=== PATIENT | female | born 1950 | race Caucasian/White ===

== ENCOUNTER 2019-12-25 19:21 | Observation (INO) | payer OTHER ==
[~2019-12-25] VITALS: Ht 157.5 cm; Wt 80.7 kg
--- NOTE | ~2019-12-25 | CON ---
[address] [address] CONSULTATION Name: LIZZETH PADILLA Room: [address] Adeola#: [id number] Admission: 12/25/19 Attend Phys: Esequiel Figueroa Discharge: Date of : 46 Report #: [id number] THIS REPORT FOR: //name// cc: Zeferino Valdes MD, Michilia D. MD ~ THIS REPORT FOR: //name// CC: Zeferino Kelley DATE OF SERVICE: 12/26/2019 HISTORY OF PRESENT ILLNESS: This is a 69-year-old female patient who was evaluated by me because the son noticed some speech difficulty about couple of days ago. He said it has become better. It came spontaneously without any trauma. He does not know anything which made it better or worse. REVIEW OF SYSTEMS: Indicates she is pretty healthy. She had some stroke about 4 years ago. At that time, she was in [facility]. I do not have any records. It is not clear how that stroke affected her. She is feeling better now. Review of systems otherwise is unremarkable. She is not complaining of any eye, ENT, cardiac, respiratory, GI, , musculoskeletal, constitutional, dermatological, hematological, psychiatric, throat, allergic symptom associated with present symptomatology. PAST MEDICAL HISTORY: Positive for stroke. She was in [facility]. I do not have any records. FAMILY HISTORY: Negative for any early age stroke. SOCIAL HISTORY: She does not drink any alcohol or smoke. PHYSICAL EXAMINATION: Indicates she is alert. She is responsive. She can follow simple and complex command. She is fully oriented. Her speech, concentration, fund of knowledge and memory is back to her baseline. Cranial nerve examination showed a question of nystagmus. Strength, sensation, reflexes and tone is symmetrical and normal. She does have difficulty sitting up and even standing up, but the son says it is his baseline. She does have difficulty walking also. There is no meningeal sign in this patient. Cardiac examination is unremarkable. No respiratory difficulty was noticed. She is a well-developed individual. Her hearing and vision looks adequate. Blood pressure is 149/80, respiration is 20, pulse is 83, temperature is 97.5. LABORATORY DATA: Her white count is 8.9. Sodium is normal at 140. GFR is normal. She did have a CT angio of the head and neck when she came to the hospital. [place] [address] CONSULTATION Name: LIZZETH PADILLA Room: [address]#: [id number] Admission: 12/25/19 Attend Phys: Esequiel Figueroa Discharge: Date of : 46 Report #: [id number] IMPRESSION: I agree with the plan of excluding the posterior fossa stroke further. Otherwise, ENT pathology need to be considered. We will plan the further workup after the MRI is done. This was discussed with the patient and the family in detail and they are agreeable with this plan. By: 1514 1652Pike Albert MD /nt
[2019-12-25 02:00] VITALS: BP 155/86
[2019-12-25 19:41] VITALS: BP 132/111
[2019-12-25] MEDS ORDERED: GLIPIZIDE 10 MG10 MG PO (19:48)
[2019-12-25] MEDS ORDERED: SIMVASTATIN80 MG PO (19:48)
[2019-12-25] MEDS ORDERED: SYNJARDY 12.5-1 EACH PO (19:48)
[2019-12-25] MEDS ORDERED: VITAMIN D210 MCG PO (19:49)
[2019-12-25] MEDS ORDERED: ASA81BEC PO (19:49)
[2019-12-25 20:09] LABS: ABSOLUTE BASOPHILS 0.1 thou/uL (0.0-0.2); ABSOLUTE EOSINOPHILS 0.1 thou/uL (0.0-0.7); ABSOLUTE LYMPHOCYTES 1.5 thou/uL (0.8-5.3); ABSOLUTE MONOCYTES 0.7 thou/uL (0.0-1.2); ABSOLUTE NEUTROPHILS 6.6 thou/uL (1.6-8.1); BASOPHILS 0.8 %; EOSINOPHILS 1.2 %; HEMOGLOBIN 14.1 gm/dL (12.0-15.0); LYMPHOCYTES 16.5 %; MCH 26.1 pg (26.0-34.0); MCHC 32.7 g/dL (28.0-37.0); MCV 79.9 fL (80.0-100.0); MPV 7.7 fl. (7.2-11.1); NUCLEATED RBCS 0 /100WBC; PLATELET COUNT* 289 thou/uL (150-400); POLYS 73.5 %; RBC 5.39 mil/uL (4.20-5.00); RDW-CV 14.6 % (10.5-14.5); WBC 8.9 thou/uL (4.0-11.0)
[2019-12-25 20:18] LABS: CREATININE 0.9 mg/dL (0.6-1.3); POTASSIUM 3.8 mmol/L (3.5-5.1)
[2019-12-25 20:20] LABS: PROTIME 10.1 Seconds (9.20-11.50)
[2019-12-25 20:32] LABS: ALBUMIN 3.7 g/dL (3.4-5.0); MAGNESIUM 1.9 mg/dL (1.8-2.4); TOTAL BILIRUBIN 0.2 mg/dL (<0.1-1.0)
[2019-12-25 23:34] LABS: URINE BILIRUBIN NEGATIVE (Negative); URINE BLOOD NEGATIVE (Negative); URINE CLARITY CLEAR; URINE COLOR STRAW; URINE GLUCOSE-RANDOM 3+ (Negative); URINE KETONES 1+ (Negative); URINE LEUKOCYTES-REFLEX NEGATIVE (Negative); URINE NITRITE-REFLEX NEGATIVE (Negative); URINE PROTEIN NEGATIVE (Negative); URINE SPECIFIC GRAVITY <= 1.005 (1.005-1.030); URINE UROBILINOGEN 0.2 E.U./dl (0.2-1.0)
[2019-12-26] VITALS (7 sets, daily range): BP systolic 139–155; BP diastolic 65–87
[2019-12-26] MEDS ORDERED: EXCEDRIN CAPLE1 EACH PO (01:54)
--- NOTE | 2019-12-26 07:34 | NUR ---
RECEIVED REPORT FROM ED RN. PT TRANSFERRED TO 201. PT A&OX4. VSS. ADMISSION HISTORY & PHYSICAL ASSESSMENT COMPLETED AND CHARTED. PT ON RA. PT TRACING SR ON TELE. ORIENTED TO ROOM & CALL LIGHT. PT UPSTANDBY TO RESTROOM. NIH CHARTED. CALL LIGHT WITHIN REACH.
[2019-12-26 09:52] LABS: CHOLESTEROL 129 mg/dL (<200); HDL CHOLESTEROL 49 mg/dL (>40); LDL CHOLESTEROL 62 mg/dL (<100); TC:HDL 2.6 Ratio (Not establshd); TRIGLYCERIDE 93 mg/dL (<150); VLDL 19 mg/dL (<40)
[2019-12-26 09:53] LABS: SERUM ASSESSMENT Clear
--- NOTE | 2019-12-26 10:27 | EKG ---
[place] [address] ELECTROCARDIOGRAM REPORT Name: LIZZETH PADILLA [address]#: [id number] Admission: 12/25/19 Attend Phys: Mansoor Kelley Discharge: Date of : 46 Date of Service: 12/25/191954 Report #: [id number] THIS REPORT FOR: //name// [facility] ED Test Date: 2019-12-25 Test Time: 19:55:18 Pat Name: LIZZETH PADILLA Department: Room: [facility] Gender: F Children[facility] Nurs[facility] Assistant: URVASHI : 1950 Requested By: Lynsey Davidson Order Number: [id number] MD: Alexandru Jones Measurements Intervals [place] Rate: 97 P: -3 UT: 149 QRS: -15 QRSD: 87 T: 4 QT: 368 QTc: 468 Interpretive Statements Sinus rhythm Borderline left axis deviation Low voltage, precordial leads No previous ECG available for comparison Electronically Signed On 12-26-2019 10:26:53 CDT by Alexandru Jones [email or web address] <ELECTRONICALLY SIGNED> By: Alexandru Jones MD, FAC 12/26/19 1026 54 54 Alexandru Jones MD, [facility] /EPI
--- NOTE | 2019-12-26 12:45 | NUR ---
Pt is A&O. Resides at home with her and son. Independent. Pt uses a walker or cane for mobility. No home o2. Hx of HH post CVA, does not remember the name of the agency. No hx of SNF. Pt's goal is to return home at dc, is open to HH at dc if needed. Neuro eval pending, planned MRI. Following.
--- NOTE | 2019-12-26 19:29 | NUR ---
PT A&OX4 VSS. FALL PRECAUTIONS IN PLACE. SINUS ON MONITOR. SBA W/WALKER FOR STABILITY. IV TO RFA PATENT, DRESSING C/D/I. PT REMAINS ON ROOM AIR. PT ACCUCHECK, SLIDING SCALE INSULIN ADMINISTERED INDICATED ON JUL. PT HAD MRI THIS AFTERNOON. FAMILY IN TO VISIT TODAY WELL. PT RESTS IN ROOM WITH CALL LIGHT IN REACH. WILL CONTINUE TO MONITOR.
[2019-12-27] VITALS: BP 138/73
[2019-12-27 02:06] LABS: GLYCOHEMOGLOBIN (HGB A1C) 8.6 % (4.8-5.6)
[2019-12-27 04:00] VITALS: BP 129/68
--- NOTE | 2019-12-27 04:46 | NUR ---
ASSUMED CARE OF PT AFTER RPORT AT 1930. PT A&OX4. VSS. PHYSICAL ASSESSMENT COMPLETED AND CHARTED. PT ON RA. PT TRACING SR ON TELE. PT UPSTANDBY TO RESTROOM. NIH CHARTED. PT COMPLAINED OF HEADACHE-MED GIVEN PER JUL. FALL PRECAUTIONS IN PLACE. CALL LIGHT WITHIN REACH.
[2019-12-27 08:00] VITALS: BP 110/81
[2019-12-27] MEDS ORDERED: VITAMIN B-12500 MCG PO (08:19)
[2019-12-27] MEDS ORDERED: PLAVIX 75 MG TA75 MG PO (08:41)
[2019-12-27 10:59] VITALS: BP 110/81
[2019-12-27 11:15] VITALS: BP 110/81
--- NOTE | 2019-12-27 12:46 | 2DMMODE ---
[place] [address] 2 D/M-MODE ECHOCARDIOGRAM Name: LIZZETH PADILLA Room: [address] Adeola#: [id number] Admission: 12/25/19 Attend Phys: Mansoor Kelley Discharge: Date of : 46 Date of Service: 12/27/19 1246 Report #: [id number] THIS REPORT FOR: cc: Zeferino Valdes MD, Michilia D. MD Blick, David R. MD [facility] ~ APPROVED REPORT Study performed: 12/27/2019 11:02:14 EXAM: Comprehensive 2D, Doppler, and color-flow Echocardiogram Patient Location: In-Patient Room #: [facility] Status: routine BSA: 1.82 HR: 60 bpm BP: 129/68 mmHg Rhythm: NSR Other Information Study Quality: Good Indications CVA/TIA Echo Enhancing Agent Indication: Rule out Shunt Agent(s) / Amount(s) Used: Agitated Saline 10 cc 2D Dimensions IVSd: 11.75 (7-11mm) LVOT Diam: 19.16 (18-24mm) LVDd: 38.41 mm PWd: 10.21 (7-11mm) Ascending Ao: 30.11 (22-36mm) LVDs: 26.59 (25-40mm) Aortic Root: 30.70 mm Volumes Left Atrial Volume (Systole) LA ESV Index: 13.50 mL/m2 Aortic Valve AoV Peak Sudhakar.: 1.15 m/s AO Peak Gr.: 5.32 mmHg LVOT Max P.66 mmHg AO Mean Gr.: 2.57 mmHg LVOT Mean P.23 [place] [address] 2 D/M-MODE ECHOCARDIOGRAM Name: LIZZETH PADILLA Room: [address] MDixieR.#: [id number] Admission: 12/25/19 Attend Phys: Mansoor Kelley Discharge: Date of : 46 Date of Service: 12/27/19 1246 Report #: [id number] LVOT Max V: 0.82 m/s AO V2 VTI: 22.55 cm LVOT Mean V: 0.51 m/s MELLISSA (VTI): 2.53 cm2 LVOT V1 VTI: 19.82 cm Mitral Valve E/A Ratio: 0.56 MV Decel. Time: 234.13 ms MV E Max Sudhakar.: 0.47 m/s MV PHT: 67.90 ms MVA (PHT): 3.24 cm2 TDI E/Lateral E': 5.88 E/Medial E': 6.71 Medial E' Sudhakar.: 0.07 m/s Lateral E' Sudhakar.: 0.08 m/s Pulmonary Valve PV Peak Sudhakar.: 0.76 m/s PV Peak Gr.: 2.33 mmHg Left Ventricle The left ventricle is normal size. There is normal LV segmental wall motion. There is normal left ventricular wall thickness. Left ventricular systolic function is normal. The left ventricular ejection fraction is within the normal range. LVEF is 60-65%. Grade I - abnormal relaxation pattern. Right Ventricle The right ventricle is normal size. The right ventricular systolic function is normal. Atria The left atrium size is normal. The interatrial septum is intact with no evidence for an atrial septal defect. The right atrium size is normal. Aortic Valve The aortic valve is normal in structure. No aortic regurgitation is present. There is no aortic valvular stenosis. Mitral Valve The mitral valve is normal in structure. There is no mitral valve regurgitation noted. No evidence of mitral valve stenosis. Tricuspid Valve The tricuspid valve is normal in structure. Unable to assess PA pressure. Trace [place]icus[place] [address] 2 D/M-MODE ECHOCARDIOGRAM Name: LIZZETH PADILLA Room: [address] M.R.#: [id number] Admission: 12/25/19 Attend Phys: Mansoor Kelley Discharge: Date of : 46 Date of Service: 12/27/19 1246 Report #: [id number] Pulmonic Valve Pulmonic valve is not well visualized. There is no pulmonic valvular regurgitation. Great Vessels The aortic root is normal in size. IVC is normal in size and collapses >50% with inspiration. Pericardium There is no pericardial effusion. <Conclusion> LVEF is 60-65%. The interatrial septum is intact with no evidence for an atrial septal defect. <ELECTRONICALLY SIGNED> By: Alexandru Jones MD, [facility] 12/27/19 1246 1246 1246 Alexandru Jones MD, FACC /INF
--- NOTE | 2019-12-27 14:34 | NUR ---
ASSUMED PT CARE REPORT RECEIVED FROM NURSE. PT IS AOX4. ON RA. TRACING SINUS RYTHM ON THE BUSINESS LOAN PROCESSOR. ACCUCHECK. ECHO. CAROTIDS US, AND MRA DONE DURING THIS SHIFT. MEDICATION GIVEN ORDERED. DISCHARGE ORDERED. IV LINE REMOVED. HEART MONITOR RETRIEVED. NEURO SIGNED OFF. PT LEFT UNIT AT 1410 ACCOMPANIED BY THIS NURSE ON WHEELCHAIR. BELONGINGS BROUGHT ALONG.
== END 2019-12-27 14:15 | disposition home or self-care (01) ==
LOC: M.ERS 19:21 → M.TBA-ER 23:07 → M.2W 23:07 → M.TBA-ER 23:07 → M.2W 12-26 00:37
PROVIDERS: Emergency Medicine; Internal Medicine; Psychiatry & Neurology Neuromuscular Medicine; ADMIT Internal Medicine; ATTEND Internal Medicine
DX: Z03.818 Encounter for observation for suspected exposure to other biological agents ruled out (principal); R53.1 Weakness; R47.81 Slurred speech; E11.9 Type 2 diabetes mellitus without complications; M25.562 Pain in left knee; M25.561 Pain in right knee; M54.30 Sciatica, unspecified side; Z86.72 Personal history of thrombophlebitis; Z79.82 Long term (current) use of aspirin; Z79.4 Long term (current) use of insulin; Z79.899 Other long term (current) drug therapy; W19.XXXA Unspecified fall, initial encounter